=== PATIENT | male | born 1960 | race Caucasian/White ===

== ENCOUNTER → 2016-05-17 | Day surgery (SDC) | payer BC ==
[~2016-05-17] MED LIST: HCTZ; NORVASC PO; ZYRTEC10 M2 PO
--- NOTE | ~2016-05-17 | OR ---
Unit #: [id number] #: [id number] Patient: JUAN CALLES [id number] [address] [place], [place] [address] [id number] O MR#: [id number] NAME: JUAN CALLES ROOM: Date of Procedure: 05/17/2016 Admission Date: 05/17/2016 Surgeon: Ryder iTpton M.D. : 1960 Attending Physician: Ryder Tipton M.D. OPERATIVE REPORT PREOPERATIVE DIAGNOSIS Screening colonoscopy. POSTOPERATIVE DIAGNOSIS Screening colonoscopy. PROCEDURE PERFORMED Colonoscopy to cecum. ANESTHESIA Monitored anesthesia care. FINDINGS The patient was found to have a normal colon to the cecum. SPECIMENS None. COMPLICATIONS None apparent. CONDITION The patient tolerated the procedure well. INDICATIONS FOR PROCEDURE The patient is a 55-year-old white male, who has never had a screening colonoscopy. He presents at this time for screening colonoscopy. DESCRIPTION OF PROCEDURE After obtaining informed consent, the patient was brought to the endoscopy suite. After adequate monitored anesthesia care, had the colonoscope placed through the anus and slowly advanced to the level of the cecum without difficulty and with the lumen always in view. The cecum was normal as was the ileocecal valve. The ascending colon was normal as was the hepatic flexure, transverse colon, splenic flexure, descending colon, sigmoid colon, and rectum. No diverticula were seen. On retroflexing in the rectum to the anorectal junction, no obvious abnormalities were seen. The scope was removed without difficulty. On digital examination, there was good sphincter tone. No masses palpable. The patient went from the endoscopy suite to recovery area in stable condition. RECOMMENDATIONS Unit #: [id number] #: [id number] Patient: JUAN CALLES High-fiber diet, lots of liquids, tucks or wipes p.r.n. Follow up as needed. Dictated by... Jasson Colby/reglal TD: 05/18/2016 03:09 JOB #: [id number] CC: Christelle Nicole A.P.R.N. [facility] OPERATIVE REPORT Page 1 of 1 X Ryder Tipton MD PROCEDURE OPERATIVE NOTE
== END | disposition home or self-care (01) ==
LOC: COPS 10:39
PROVIDERS: Surgery
PROC: 0DJD8ZZ Inspection of Lower Intestinal Tract, Via Natural or Artificial Opening Endoscopic (ICD-10-PCS; principal; 2016-05-17 12:30)
DX: Z12.11 Encounter for screening for malignant neoplasm of colon (principal); Z79.899 Other long term (current) drug therapy; I10 Essential (primary) hypertension; M19.90 Unspecified osteoarthritis, unspecified site; E78.00 Pure hypercholesterolemia, unspecified; M54.9 Dorsalgia, unspecified; Z83.3 Family history of diabetes mellitus
CPT/HCPCS: J2250